=== PATIENT | female | born 1985 | race Caucasian/White ===

== ENCOUNTER → 2022-01-10 11:44 | Outpatient (CLI) | payer BC, SELFPAY ==
--- NOTE | ~2022-01-10 | XR_ITS ---
EXAMINATION: XR chest 2V DATE: 01/10/2022 12:07 INDICATION: Chest pain. TECHNIQUE: Frontal and lateral views of the chest were obtained. COMPARISON: None. FINDINGS: There is no pneumonia, pleural effusion, or pneumothorax. The heart size is normal. There i s a right-sided aortic arch. Breast implants are noted. IMPRESSION: 1. Right-sided aortic arch. Reviewed, dictated and finalized at location A. IMPRESSION: 1. Right-sided aortic arch.
== END ==
DX: R07.9 Chest pain, unspecified (principal)
CPT/HCPCS: 71046

== ENCOUNTER → 2022-01-23 08:03 | Outpatient (CLI) | payer BC, SELFPAY ==
--- NOTE | ~2022-01-23 | CT_ITS ---
EXAMINATION: CTA chest PE protocol EXAM DATE: 01/23/2022 09:03 INDICATION: Right aortic arch, right side chest pain. TECHNIQUE: Spiral CTA of the chest (pulmonary arteries) was performed with 100 cc Omnipaque 350 intr avenous contrast injection. Images were acquired during the pulmonary arterial phase. Coronal maxi mum intensity projection 3D-reconstructions were created by the technologist on dedicated workstation . Axial, coronal and sagittal reformatted images were reviewed. The dose-length product (DLP) for t his examination was 696.72 mGy-cm. The exposure was tailored according to patient size (auto mA exp osure control), and iterative reconstruction (ASIR) was used as additional dose reduction technique. There is no prior study for comparison. FINDINGS: There are no pulmonary emboli in the 1st through 3rd order (central and interlobar) pulmon preeti arteries. Some loss of attenuation in the segmental pulmonary arteries due to respiratory motion , but no intraluminal filling defects suspected. There is right-sided aortic arch, a congenital varia nt. Normal abdominal situs. No thoracic aortic dissection. The lungs are clear. There are no pleur al or pericardial effusions. Tracheobronchial tree is patent. There is no mediastinal, hilar or a xillary lymphadenopathy. There is no pneumothorax. Heart normal in size. Mildly hazy density surrounding the mildly distended gallbladder. There is no calcified cholelithiasi s. Possible acute or chronic cholecystitis. Please clinically correlate. There are bilateral breast i mplants. Mild thoracic spondylosis. IMPRESSION: 1. Hazy pericholecystic fat stranding, possible cholecystitis. 2. Mild limitations but no pulmonary emboli suspected. 3. Right-sided aortic arch. I left a message for Dr. Emile Stlyes MD on 01/23/2022 14:07 CDT. I requested him to review this repo rt, provided my direct number for call back. Reviewed, dictated and finalized at location B. IMPRESSION: 1. Hazy pericholecystic fat stranding, possible cholecystitis. 2. Mild limitations but no pulmonary emboli suspected. 3. Right-sided aortic arch. I left a message for Dr. Emile Styles MD on 01/23/2022 14:07 CDT. I requested h im to review this report, provided my direct number for call back.
== END ==
PROVIDERS: PCP Emergency Medicine; Visit Provider Emergency Medicine
DX: R07.89 Other chest pain (principal); Q25.47 Right aortic arch
CPT/HCPCS: 71275; Q9967

== ENCOUNTER 2022-06-05 15:49 | Outpatient (CLI) | payer BC, SELFPAY ==
--- NOTE | ~2022-06-05 | XR_ITS ---
EXAM: XR lumbar spine 2-3V DATE: 06/05/2022 16:26 HISTORY: Lumbago with sciatica, left/right side, other cyber incident analyst . COMPARISON: 09/15/2015. FINDINGS: Cholecystectomy clips. 5 nonrib-bearing lumbar-type vertebral bodies. The plastic ribs at T 12 Bilateral sacralization of L5, with pseudoarthrosis formation bilaterally and a rudimentary disc. Impression Pedicles intact. Normal vertebral body alignment. Vertebral body heights preserved. Disc s paces maintained. Normal facets and posterior elements. No fracture or dislocation. IMPRESSION: Sacralization of L5, with bilateral pseudoarthrosis, which can be a source of pain in mary kate e patients. Reviewed, dictated and finalized at location K. IMPRESSION: Sacralization of L5, with bilateral pseudoarthrosis, which can be a source of pain in some patients.
--- NOTE | ~2022-06-05 | XR_ITS ---
EXAMINATION: XR hip BI 2V w AP pelvis DATE: 06/05/2022 16:26 INDICATION: Bilateral hip pain TECHNIQUE: AP view the pelvis and two views of each hip were obtained. COMPARISON: None. FINDINGS: Bone alignment is normal. There is no fracture. The soft tissues are unremarkable. IMPRESSION: 1. No acute osseous abnormality. Reviewed, dictated and finalized at location D.
== END 2022-06-05 15:50 ==
PROVIDERS: PCP Internal Medicine; Visit Provider Internal Medicine
DX: M54.42 Lumbago with sciatica, left side (principal); M54.41 Lumbago with sciatica, right side; G89.29 Other chronic pain
CPT/HCPCS: 72100; 73521

== ENCOUNTER → 2023-03-09 14:20 | Outpatient (CLI) | payer BC, SELFPAY | PROVIDERS: PCP Internal Medicine; Visit Provider Internal Medicine | DX: M79.671 Pain in right foot (principal) | CPT/HCPCS: 73630 ==

== ENCOUNTER 2023-03-23 13:49 | Outpatient (CLI) | payer BC, SELFPAY ==
--- NOTE | ~2023-03-23 | CT_ITS ---
EXAMINATION: CT abdomen pelvis wo con DATE: 03/23/2023 14:14 INDICATION: Right flank pain. TECHNIQUE: Computed tomography (CT) of the abdomen and pelvis was performed without intravenous contr ast. Automated exposure control and iterative reconstruction technique were employed. The dose-length product was 1038.26 mGy-cm. COMPARISON: Chest CT 01/23/2022 FINDINGS: The visualized portions of the lung bases demonstrate minimal atelectasis. No pleural effus ion. The heart size is normal. No pericardial effusion. The liver is normal. There are changes of cho lecystectomy. The spleen, pancreas, adrenal glands, and right kidney are normal. There is a 2 mm ston e in left kidney. There are no dilated loops of bowel. The appendix is normal. There are no pathologi kateryna enlarged lymph nodes. There is no free intraperitoneal fluid. There is an umbilical hernia cont aining fat. There is mild thoracic and lumbar spondylosis. 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 IMPRESSION: 1. Umbilical hernia containing fat. 2. Small nonobstructing left kidney stone. Reviewed, dictated and finalized at location A.
== END 2023-03-23 13:50 ==
LOC: MICIMG 13:49
PROVIDERS: PCP Internal Medicine; Visit Provider Internal Medicine
DX: R10.9 Unspecified abdominal pain (principal); K42.9 Umbilical hernia without obstruction or gangrene; N20.0 Calculus of kidney
CPT/HCPCS: 74176

== ENCOUNTER → 2023-03-23 13:51 | Outpatient (CLI) | payer BC, SELFPAY ==
--- NOTE | ~2023-03-23 | XR_ITS ---
EXAMINATION: XR ankle RT min 3V DATE: 03/23/2023 14:06 INDICATION: Lateral right ankle pain. TECHNIQUE: 4 views of right ankle were obtained. COMPARISON: Right foot radiographs 03/09/2023 FINDINGS: Bone alignment is normal. No fracture. Joint spaces are well maintained. There is ankle sof t tissue swelling. IMPRESSION: 1. No fracture. Reviewed, dictated and finalized at location A. IMPRESSION: 1. No fracture.
== END ==
PROVIDERS: PCP Internal Medicine; Visit Provider Nurse Practitioner
DX: M25.571 Pain in right ankle and joints of right foot (principal)
CPT/HCPCS: 73610